=== PATIENT | female | born 1945 | race Native Hawaiian/Other Pacific Islander ===

== ENCOUNTER 2019-02-22 21:03 | Emergency (ER) | payer OTHER ==
[~2019-02-22] VITALS: Ht 157.5 cm; Wt 60.8 kg
[2019-02-22 21:20] VITALS: TEMP 97.7
[2019-02-22 23:10] VITALS: BP 188/65
== END 2019-02-22 23:10 | disposition home or self-care (01) ==
LOC: ED 21:03
DX: S13.4XXA Sprain of ligaments of cervical spine, initial encounter (principal); V89.2XXA Person injured in unspecified motor-vehicle accident, traffic, initial encounter; Y92.89 Other specified places as the place of occurrence of the external cause
CPT/HCPCS: 99283